=== PATIENT | female | born 1990 | race African-American/Black ===

== ENCOUNTER 2021-04-27 17:44 | Emergency (ER) | payer OTHER, SELFPAY ==
[2021-04-27] MEDS ORDERED: Mag-Al 1200 mg/1200 mg/30 ML UDCUP ONE (20:29)
[2021-04-27] MEDS ORDERED: Lidocaine Viscous Sol 2% 15 ml UD Cup ONE (20:29)
[2021-04-27] MEDS ORDERED: Acetaminophen 500 MG TAB ONE (21:14)
[2021-04-28 13:02] LABS: SARS-CoV-2 PCR by NAA DETECTED (NotDetected)
== END 2021-04-27 21:27 | disposition home or self-care (01) ==
LOC: ERS 17:44
DX: U07.1 COVID-19 (principal)
CPT/HCPCS: 71045; 93005; U0003; U0005

== ENCOUNTER 2021-05-15 09:03 | Emergency (ER) | payer SELFPAY ==
[2021-05-15 14:58] LABS: SARS-CoV-2 PCR by NAA DETECTED (NotDetected)
== END 2021-05-15 10:03 | disposition home or self-care (01) ==
LOC: ERS 09:03
DX: U07.1 COVID-19 (principal); J02.9 Acute pharyngitis, unspecified
CPT/HCPCS: 99283; U0003; U0005

== ENCOUNTER 2022-01-08 00:52 | Emergency (ER) | payer BC, SELFPAY | END 2022-01-08 01:32 | disposition home or self-care (01) | LOC: ERS 00:52 | DX: B34.9 Viral infection, unspecified (principal) | CPT/HCPCS: 99283 ==